=== PATIENT | male | born 1945 | race African-American/Black ===

== ENCOUNTER 2017-05-25 07:06 | Day surgery (SDC) | payer BC ==
--- NOTE | ~2017-05-25 | EGD ---
EGD REPORT [facility] [address] [address] NAME: BERTA BEAVERS : [birth year] STATUS : REG [facility]#: [id number] AGE: 71 ADM/REG DATE : 05/25/17 MR#: [id number] REPORT SERV DATE: 05/26/17 DICTATED BY: LUDIN HARPER DATE: 05/26/17 REPORT STATUS : Draft TRANSCRIBED BY: [employer] DATE: 05/26/17 [facility] Patient Name: Berta Beavers Date of : 1945 Attending MD: LUDIN HARPER MD Procedure Date No Time: 05/25/2017 Procedure: Colonoscopy Indications: FH of Colon Cancer - 1st degree relative, FH of Colonic Polyps - 1st degree relative Referring MD: REID FAJARDO MD Medicines: as per anesthesia Complications: No immediate complications. Procedure: Pre-Anesthesia Assessment: - ASA Grade Assessment: III - A patient with severe systemic disease. After I obtained informed consent, the scope was passed under direct vision. Throughout the procedure, the patient's blood pressure, pulse, and oxygen saturations were monitored continuously. The [facility] H190L [id number] was introduced through the anus and advanced to the sigmoid colon. The colonoscopy was performed with difficulty due to inadequate bowel prep. The patient tolerated the procedure. The quality of the bowel preparation was inadequate. Findings: The perianal and digital rectal examinations were normal. A large amount of stool was found in the rectum and in the sigmoid colon, precluding visualization. Impression: - Preparation of the colon was inadequate. - Stool in the rectum and in the sigmoid colon. Recommendation: - Repeat colonoscopy for surveillance. Procedure Code(s): --- Professional --- 11232, 52, Colonoscopy, flexible, proximal to splenic flexure; diagnostic, with or without collection of specimen(s) by brushing or washing, with or without colon decompression (separate procedure) Diagnosis Code(s): --- Professional --- Z80.0, Family history of malignant neoplasm of digestive organs Z83.71, Family history of colonic polyps EGD REPORT [address] [facility] [address] NAME: BERTA BEAVERS : [birth year] STATUS : REG [facility]#: [id number] AGE: 71 ADM/REG DATE : 05/25/17 MR#: [id number] REPORT SERV DATE: 05/26/17 DICTATED BY: LUDIN HARPER DATE: 05/26/17 REPORT STATUS : Draft TRANSCRIBED BY: [employer] DATE: 05/26/17 CPT copyright 2013 [employer]. All rights reserved. The codes documented in this report are preliminary and upon plastic mixer review may be revised to meet current compliance requirements. LUDIN HARPER MD 05/25/2017 9:21 AM This report has been signed electronically. Number of Addenda: 0 Note Initiated On: 05/25/2017 9:00 AM Scope Withdrawal Time 0 hours 0 minutes [address] [place] [address] [place] [address]
--- NOTE | ~2017-05-25 | EGD ---
EGD REPORT [facility] [address] [address] NAME: BERTA BEAVERS : [birth year] STATUS : REG [facility]#: [id number] AGE: 71 ADM/REG DATE : 05/25/17 MR#: [id number] REPORT SERV DATE: 05/26/17 DICTATED BY: LUDIN HARPER DATE: 05/26/17 REPORT STATUS : Draft TRANSCRIBED BY: [employer] DATE: 05/26/17 [facility] Center Patient Name: Berta Beavers Date of : 1945 Attending MD: LUDIN HARPER MD Procedure Date No Time: 05/25/2017 Procedure: Colonoscopy Indications: FH of Colon Cancer - 1st degree relative, FH of Colonic Polyps - 1st degree relative Referring MD: REID FAJARDO MD Medicines: as per anesthesia Complications: No immediate complications. Procedure: Pre-Anesthesia Assessment: - ASA Grade Assessment: III - A patient with severe systemic disease. After I obtained informed consent, the scope was passed under direct vision. Throughout the procedure, the patient's blood pressure, pulse, and oxygen saturations were monitored continuously. The [facility] H190L [id number] was introduced through the anus and advanced to the sigmoid colon. The colonoscopy was performed with difficulty due to inadequate bowel prep. The patient tolerated the procedure. The quality of the bowel preparation was inadequate. Findings: The perianal and digital rectal examinations were normal. A large amount of stool was found in the rectum and in the sigmoid colon, precluding visualization. Impression: - Preparation of the colon was inadequate. - Stool in the rectum and in the sigmoid colon. Recommendation: - Repeat colonoscopy for surveillance. Procedure Code(s): --- Professional --- 13746, 52, Colonoscopy, flexible, proximal to splenic flexure; diagnostic, with or without collection of specimen(s) by brushing or washing, with or without colon decompression (separate procedure) Diagnosis Code(s): --- Professional --- Z80.0, Family history of malignant neoplasm of digestive organs Z83.71, Family history of colonic polyps EGD REPORT [address] [facility] [address] NAME: BERTA BEAVERS : [birth year] STATUS : REG [facility]#: [id number] AGE: 71 ADM/REG DATE : 05/25/17 MR#: [id number] REPORT SERV DATE: 05/26/17 DICTATED BY: LUDIN HARPER DATE: 05/26/17 REPORT STATUS : Draft TRANSCRIBED BY: [employer] DATE: 05/26/17 CPT copyright 2013 [employer]. All rights reserved. The codes documented in this report are preliminary and upon supplier engineer review may be revised to meet current compliance requirements. LUDIN HARPER MD 05/25/2017 9:21 AM This report has been signed electronically. Number of Addenda: 0 Note Initiated On: 05/25/2017 9:00 AM Scope Withdrawal Time 0 hours 0 minutes [address] [place] [address] [place] [address]
[~2017-05-25 07:06] MED LIST: ACCU20 PO; ACCUPRIL40 MG PO; ACTONEL PO; ACTOS30 PO; AMARYL2 PO; AMARYL4 PO; ASAB PO; BIDIL20/37 PO; BREO ELLIPTA INH; CARDU4 PO; CASODEX 50 MG T50 MG PO; CASODEX50 MG OR; CLARIT10 PO; COREG3 PO; COREG6 PO; CRESTOR10 PO; DSS PO; FESO4 PO; GLUCOPHAGE1000 MG PO; HYT2 PO; JANUVIA PO; JANUVIA25 MG PO; JANUVIA50 PO; L20 PO; L40 PO; LANTUSCART SC; MIRALAX POWDER1 PKT PO; NORV10 PO; PHOSLO PO; PRILO PO; PROAIR HFA INH; QUINAPRIL; REG PO; SODBICAR10 PO; T PO; VITAMIN D31000 UNIT PO
== END 2017-05-25 23:59 | disposition home or self-care (01) ==
LOC: DMU 07:06
PROVIDERS: Internal Medicine Gastroenterology
PROC: 0DJD8ZZ Inspection of Lower Intestinal Tract, Via Natural or Artificial Opening Endoscopic (ICD-10-PCS; principal; 2017-05-25 08:30)
DX: Z12.11 Encounter for screening for malignant neoplasm of colon (principal); I12.9 Hypertensive chronic kidney disease with stage 1 through stage 4 chronic kidney disease, or unspecified chronic kidney disease; E11.22 Type 2 diabetes mellitus with diabetic chronic kidney disease; N18.3 Chronic kidney disease, stage 3 (moderate); Z85.46 Personal history of malignant neoplasm of prostate; J44.9 Chronic obstructive pulmonary disease, unspecified; K21.9 Gastro-esophageal reflux disease without esophagitis; Z80.0 Family history of malignant neoplasm of digestive organs; Z79.82 Long term (current) use of aspirin; Z79.899 Other long term (current) drug therapy; Z87.891 Personal history of nicotine dependence; Z96.653 Presence of artificial knee joint, bilateral; Z98.890 Other specified postprocedural states
CPT/HCPCS: 82962